=== PATIENT | female | born 1980 | race Caucasian/White ===

== ENCOUNTER 2022-07-03 22:41 | Emergency (ER) | payer OTHER ==
[2022-07-03 23:29] LABS: Bilirubin Neg (Negative); Blood, Urine Negative (Negative); Clarity Clear (Clear); Glucose, Urine (Dipstick) Normal (Negative); Ketone, Urine 50 mg/dL (Negative); Leukocyte 25 (Negative); Nitrite Negative (Negative); Protein, Urine (Dipstick) 15 mg/dl (Neg-Trace); Urobilinogen Normal mg/dL (Less than 2)
[2022-07-03] MEDS ORDERED: Ondansetron PF 4 MG/2 ML Vial ONE (23:32)
[2022-07-03 23:38] LABS: Bacteria/HPF Rare-Few HPF (None Seen); Mucous/LPF 1+ LPF (<2+); RBC/HPF 0-3 HPF (0-3); WBC/HPF 0-3 HPF (0-3)
[2022-07-03 23:41] LABS: #Eosinphils 0.1 10x3/uL (0.0-0.5); #Monocytes 0.2 10x3/uL (0.0-1.1); #Neutrophils 7.7 10x3/uL (1.5-8.4); %Basophils 0.4 % (0.0-2.0); %Eosinophils 0.8 % (0.0-6.0); %Lymphocytes 15.7 % (18.0-47.0); %Monocytes 2.4 % (0.0-10.0); %Neutrophils 80.3 % (40.0-75.0); Hemoglobin 13.8 g/dL (12.0-15.5); Mean Corpuscular HGB CONC 32.9 g/dL (32.0-36.0); Mean Corpuscular Hemoglobin 27.7 pg (27.0-33.0); Mean Corpuscular Volume 84.2 fl (81.6-98.3); Platelet Count 267 10x3/uL (150-450); RBC Distribution Width 14.7 % (11.5-14.5); Red Blood Cell (RBC) Count 4.99 10x6/uL (3.90-5.03); White Blood Cell (WBC) Count 9.6 10x3/uL (3.5-10.5)
[2022-07-03 23:50] LABS: ALT (SGPT) 29 U/L (8-55); AST (SGOT) 24 U/L (5-34); Albumin 4.6 g/dL (3.5-5.0); Alkaline Phosphatase 56 U/L (40-110); Anion Gap 16 mmol/L (10-20); BUN (Urea Nitrogen) 12 mg/dL (7.0-18.7); Bilirubin, Total 0.5 mg/dL (0.2-1.2); Calc. Creatinine Clearance 0 mL/min (70-130); Calcium 9.8 mg/dL (7.8-10.44); Carbon Dioxide 22 mmol/L (22-29); Chloride 103 mmol/L (98-107); Estimated GFR 89; Glucose 151 mg/dL (70-105); Lipase 21 U/L (8-78); Potassium 4.4 mmol/L (3.5-5.1); Protein, Total 7.6 g/dL (6.0-8.3); Sodium 137 mmol/L (136-145)
[2022-07-04] MEDS ORDERED: Dicyclomine 20 MG/2 ML VIAL ONE (00:11)
[2022-07-04] MEDS ORDERED: Ondansetron PF 4 MG/2 ML Vial ONE (00:49)
[2022-07-04] MEDS ORDERED: Lidocaine Viscous Sol 2% 15 ml UD Cup ONE (01:38)
[2022-07-04] MEDS ORDERED: Mag-Al Plus 1200 MG/1200 MG/120 MG/30 ML UDCUP ONE (01:38)
[2022-07-04] MEDS ORDERED: Ketorolac Tromethamine 30 MG/ML VIAL ONE (02:05)
[2022-07-04] MEDS ORDERED: Promethazine HCl 25 MG/ML VIAL IVPB SCH (02:45)
== END 2022-07-04 03:45 | disposition home or self-care (01) ==
LOC: CSHERS 22:41
DX: R11.2 Nausea with vomiting, unspecified (principal); R19.7 Diarrhea, unspecified; E03.9 Hypothyroidism, unspecified
CPT/HCPCS: 80053; 81003; 81015; 83690; 84484; 85025; 93005; 96361; 96365; 96372; 96375; 96376; J1885; J2405; J2550

== ENCOUNTER 2024-03-02 12:40 | Outpatient (CLI) | payer OTHER | END 2024-03-02 12:41 | disposition home or self-care (01) | LOC: CSHDTY/OP 12:40 | PROVIDERS: ATTEND Surgery | DX: E66.01 Morbid (severe) obesity due to excess calories (principal) | CPT/HCPCS: 97802 ==

== ENCOUNTER 2024-03-24 13:30 | Outpatient (CLI) | payer OTHER | END 2024-03-24 13:31 | disposition home or self-care (01) | LOC: CSHDTY/OP 13:30 | PROVIDERS: ATTEND Surgery | DX: Z71.3 Dietary counseling and surveillance (principal); E66.01 Morbid (severe) obesity due to excess calories | CPT/HCPCS: 97802 ==

== ENCOUNTER 2024-04-17 15:51 | Outpatient (CLI) | payer OTHER | END 2024-04-17 15:52 | disposition home or self-care (01) | LOC: CSHDTY/OP 15:51 | PROVIDERS: ATTEND Surgery | DX: Z71.3 Dietary counseling and surveillance (principal); E66.01 Morbid (severe) obesity due to excess calories | CPT/HCPCS: 97802 ==

== ENCOUNTER 2024-06-02 11:27 | Outpatient (CLI) | payer OTHER | END 2024-06-02 11:28 | disposition home or self-care (01) | LOC: CSHDTY/OP 11:27 | PROVIDERS: ATTEND Surgery | DX: Z71.3 Dietary counseling and surveillance (principal); E66.01 Morbid (severe) obesity due to excess calories | CPT/HCPCS: 97802 ==

== ENCOUNTER 2024-06-23 12:49 | Outpatient (CLI) | payer OTHER | END 2024-06-23 12:50 | disposition home or self-care (01) | LOC: CSHDTY/OP 12:49 | PROVIDERS: ATTEND Surgery | DX: Z71.3 Dietary counseling and surveillance (principal); E66.01 Morbid (severe) obesity due to excess calories | CPT/HCPCS: 97802 ==